=== PATIENT | female | born 1940 | race Caucasian/White ===

== ENCOUNTER → 2021-05-14 10:09 | Outpatient (CLI) | payer MEDICARE, SELFPAY ==
--- NOTE | 2021-05-14 10:23 | XR_ITS ---
PROCEDURE: XR LUMBAR SPINE MIN 4V CLINICAL INDICATION: LOW BACK PAIN COMPARISON: No exams were available for comparison FINDINGS: Mild lumbar scoliosis convex left. Approximately 40 percent wedging T12 age indeterminate. Mild kyphosis at the T12 level. Degenerative disc disease L1-L2, L2-L3, L3-L4, and L5-S1. There is 5 mm retrolisthesis of L5 on S1. Facet arthritic changes are present at L4-L5 and S1. Cholelithiasis and right nephrolithiasis. Coarse calcification noted in the central pelvic region and could be due to uterine fibroid. Mild degenerative changes of the SI joints. IMPRESSION: Multilevel degenerative changes with scoliosis and 40 percent wedge compression changes of T12 age indeterminate Dictated by: Jeffy Ledesma MD 05/14/2021 17:39 Jeffy Ledesma MD in [place] 05/14/2021 17:39
--- NOTE | 2021-05-14 10:23 | XR_ITS ---
PROCEDURE: XR HIP RT 2-3V W/PELVIS CLINICAL INDICATION: LOW BACK PAIN COMPARISON: No exams were available for comparison FINDINGS: Mild osteoarthritic change. No acute fracture or dislocation. Mild bony hypertrophy of the greater trochanter.. Small central pelvic calcification measuring 11 mm and may be due to a fibroid. Mild degenerative changes SI joints left greater than right. IMPRESSION: Mild osteoarthritic change of the right hip. Dictated by: Jeffy Ledesma MD 05/14/2021 18:00 Jeffy Ledesma MD in [facility] 05/14/2021 18:00
--- NOTE | 2021-05-14 10:23 | XR_ITS ---
PROCEDURE: XR HIP LT 2-3V W/PELVIS CLINICAL INDICATION: LOW BACK PAIN COMPARISON: No exams were available for comparison FINDINGS: Mild osteoarthritis noted of the left hip. No fracture or dislocation. No lytic or blastic change. Small calcific density is present lateral to the greater trochanter could represent an old injury or ligamentous injury. IMPRESSION: Mild degenerative changes Dictated by: Jeffy Ledesma MD 05/14/2021 18:01 Jeffy Ledesma MD in [place] 05/14/2021 18:01
--- NOTE | 2021-05-14 10:23 | XR_ITS ---
PROCEDURE: XR SACROILIAC JOINT BI MIN 3V CLINICAL INDICATION: LOW BACK PAIN COMPARISON: No exams were available for comparison FINDINGS: There is degenerative disc disease at L5-S1. No S fusion. Minimal spurring and bony hypertrophy of the left SI joint. No fracture or dislocation. Other findings:None. IMPRESSION: Mild degenerative changes left SI joint Dictated by: Jeffy Ledesma MD 05/14/2021 18:02 Jeffy Ledesma MD in [place] 05/14/2021 18:02
== END ==
PROVIDERS: PCP Internal Medicine Adolescent Medicine; Visit Provider Internal Medicine Adolescent Medicine
DX: M54.50 Low back pain, unspecified (principal); M53.3 Sacrococcygeal disorders, not elsewhere classified; M25.552 Pain in left hip; M25.551 Pain in right hip
CPT/HCPCS: 72110; 72202; 73502